=== PATIENT | male | born 1980 | race Caucasian/White ===

== ENCOUNTER 2020-10-11 04:40 | Emergency (ER) | payer MEDICAID ==
[~2020-10-11] VITALS: Ht 185.4 cm; Wt 109.1 kg
[2020-10-11 04:41] VITALS: BP 148/91
[2020-10-11] MEDS ORDERED: ketorolac trometh. 30mg/ml inj. IM ONE (04:50)
[2020-10-11] MEDS ORDERED: sulfamethoxazole/trimethoprim DS (800/160mg) tablet PO ONE (04:50)
[2020-10-11] MEDS ORDERED: IBUP-1985 PO (04:52)
[2020-10-11] MEDS ORDERED: SULF1TAB49 PO (04:52)
== END 2020-10-11 05:07 | disposition home or self-care (01) ==
LOC: ER 04:41
DX: L02.212 Cutaneous abscess of back [any part, except buttock and flank] (principal); R11.2 Nausea with vomiting, unspecified; F20.9 Schizophrenia, unspecified; F17.200 Nicotine dependence, unspecified, uncomplicated; F15.90 Other stimulant use, unspecified, uncomplicated; Z72.89 Other problems related to lifestyle; Z88.5 Allergy status to narcotic agent; Z88.1 Allergy status to other antibiotic agents; Z79.2 Long term (current) use of antibiotics; Z79.899 Other long term (current) drug therapy
CPT/HCPCS: 96372; 99283; J1885